=== PATIENT | female | born 1990 | race Caucasian/White ===

== ENCOUNTER → 2016-10-08 | Outpatient (CLI) | payer BC ==
[~2016-10-08] VITALS: Ht 174.5 cm; Wt 70.5 kg
[~2016-10-08] MED LIST: Motrin PO; PRENATAL TABLE1 EAC3 PO; PRENATAL VITAMINS; Percocet 5/325,Endoc PO
[2016-10-08 15:05] VITALS: BP 117/64
== END | disposition home or self-care (01) ==
LOC: IVINF 14:55
DX: O36.0930 Maternal care for other rhesus isoimmunization, third trimester, not applicable or unspecified (principal); Z3A.28 28 weeks gestation of pregnancy
CPT/HCPCS: 96372; J2790

== ENCOUNTER 2016-12-28 19:19 | Inpatient (IN) | payer BC ==
[2016-12-28 19:34] VITALS: BP 128/72
[2016-12-28 22:35] VITALS: BP 127/73
[2016-12-28 23:16] VITALS: BP 128/72
[2016-12-28] MEDS ORDERED: MOTRIN800 MG PO (23:29)
[2016-12-28 23:32] VITALS: BP 119/69
[2016-12-28 23:47] VITALS: BP 123/74
[2016-12-29 00:02] VITALS: BP 116/69
[2016-12-29 01:05] VITALS: BP 110/67
[2016-12-29 02:18] VITALS: BP 99/57
[2016-12-29 07:27] VITALS: BP 116/60
[2016-12-29 14:43] VITALS: BP 111/65
[2016-12-29 23:20] VITALS: BP 112/55
[2016-12-30 06:23] VITALS: BP 99/56
== END 2016-12-30 15:17 | disposition home or self-care (01) | DRG 775 ==
LOC: LDRP-OP 19:19 → 2WEST 19:20 → LDRP-OP 01-27 09:51
DX: O80 Encounter for full-term uncomplicated delivery (principal); Z37.0 Single live birth; Z3A.40 40 weeks gestation of pregnancy
CPT/HCPCS: J2590